=== PATIENT | female | born 1975 | race Caucasian/White ===

== ENCOUNTER → 2017-01-31 | Outpatient (CLI) | payer BC ==
--- NOTE | 2017-01-31 11:24 | XR ---
EXAMINATION TYPE: XR knee limited LT DATE OF EXAM: 01/31/2017 COMPARISON: NONE HISTORY: Knee pain TECHNIQUE: 2 view left knee FINDINGS: Joint spaces are preserved. No joint effusion is evident. No acute osseous abnormality is e vident. The soft tissues appear normal. No radiopaque foreign bodies are evident. IMPRESSION: 1. Normal 2 view left knee
--- NOTE | 2017-01-31 11:25 | XR ---
EXAMINATION TYPE: XR lumbosacral spine min 4V DATE OF EXAM: 01/31/2017 COMPARISON: NONE HISTORY: Low back pain TECHNIQUE: 4 view lumbar spine FINDINGS: There is straightening of the lumbar spine. Some facet degenerative changes present. There 5 lumbar-type vertebral bodies. Pedicles are intact. Disc heights are preserved. Vertebral body heigh ts are preserved. There is straightening of the lumbar spine and the lateral projection. IMPRESSION: 1. No acute osseous abnormality.
== END ==
LOC: RADXRYALE 10:44
PROVIDERS: ATTEND Internal Medicine
DX: M25.562 Pain in left knee (principal); M54.5 Low back pain
CPT/HCPCS: 72110

== ENCOUNTER → 2017-02-06 | Outpatient (CLI) | payer BC ==
--- NOTE | 2017-02-07 13:18 | MM ---
Reason for exam: screening (asymptomatic). Last mammogram was performed 7 years and 2 months ago. History: Patient is nulliparous. Cyst aspiration of the left breast, 2006. Taking hormonal contraceptives. Physical Findings: A clinical breast exam by your physician is recommended on an annual basis and results should be correlated with mammographic findings. MG Screening Mammo w CAD Bilateral CC and MLO view(s) were taken. Prior study comparison: December 11, 2009, mammogram, performed at [facility]. There are scattered fibroglandular densities. No significant changes when compared with prior studies. ASSESSMENT: Negative, BI-RAD 1 RECOMMENDATION: Routine screening mammogram of both breasts in 1 year.
== END | disposition home or self-care (01) ==
LOC: RADMAMWWP 13:53
PROVIDERS: ATTEND Obstetrics & Gynecology
DX: Z12.31 Encounter for screening mammogram for malignant neoplasm of breast (principal)

== ENCOUNTER → 2018-03-03 | Outpatient (CLI) | payer BC ==
--- NOTE | 2018-03-04 12:24 | MM ---
Reason for exam: screening (asymptomatic). Last mammogram was performed 1 year and 1 month ago. History: Patient is nulliparous. Cyst aspiration of the left breast, 2006. Taking hormonal contraceptives. Physical Findings: A clinical breast exam by your physician is recommended on an annual basis and results should be correlated with mammographic findings. MG Screening Mammo w CAD Bilateral CC and MLO view(s) were taken. Prior study comparison: February 06, 2017, bilateral MG screening mammo w CAD. December 11, 2009, mammogram, performed at [facility]. There are scattered fibroglandular densities. No suspicious abnormality. No significant changes when compared with prior studies. ASSESSMENT: Negative, BI-RAD 1 RECOMMENDATION: Routine screening mammogram of both breasts in 1 year.
== END | disposition home or self-care (01) ==
LOC: RADMAMWWP 15:31
PROVIDERS: ATTEND Obstetrics & Gynecology
DX: Z12.31 Encounter for screening mammogram for malignant neoplasm of breast (principal)
CPT/HCPCS: 77067

== ENCOUNTER → 2023-01-20 | Outpatient (CLI) | payer OTHER ==
--- NOTE | 2023-01-20 12:05 | CA ---
Exercise Stress Test Report Name: Ave Coats Exam Date: 01/20/2023 09:04 Exam Location: [place] Stress Ht (in): 71 Wt (lb): 273 BSA: 2.41 Ordering Phys: Lia Murray DO Referring Phys: LIA MURRAY,, Technologist: Neeraj Sanchez Age: 47 Gender: F : 1975 Procedure CPT: Indications: R07.89 ICD-10 Codes: Patient History: Medications: MOUNJARO, LISINOPRIL, METFORMIN, IBUPROFEN Meds past 24 hrs: Pretest Chest Pain: STRESS TEST George Protocol Exercise Duration (min:sec): 06:[address] Depressions (mm): Angina Score: Altamirano Score: Resting HR (bpm): 82 Peak HR (bpm): 165 Resting BP (mmHg): 131 / 85 Peak BP (mmHg): 186 / 84 MPHR: 175 Target HR: 149 % MPHR: 94 METS: 8.6 Total Dose: Peak Dose: Atropine: Double Product: 86477 BP Response: Stress Termination: Reached target heart rate Stress Symptoms: SHORT OF BREATH Stress Summary: ECG ANALYSIS Resting ECG: Stress ECG: CONCLUSIONS Patient underwent exercise stress EKG with a George protocol treadmill stress test. Patient exercised into Stage 2 for a total of 6 minutes and 57 seconds reaching a total of 8.6 METS. Patient's maximum heart rate was 165 which represented 94 % age- predicted maximum heart rate. Stress EKG findings: At baseline patient's EKG showed normal sinus rhythm, normal axis, right bundle branch block with nonspecific [address] depressions V3 through V5 and 3 and aVF. At peak exercise, EKG showed accentuation of baseline EKG abnormalities. Conclusions: 1. Nondiagnostic stress EKG second baseline EKG abnormalities. Consider repeating stress test with imaging modality if clinically indicated. 2. Fair exercise capacity. Dr. Mark Card DO (Electronically Signed) Final Date: 20 January 2023 12:04
== END | disposition home or self-care (01) ==
LOC: RADNMMAIN 08:34
PROVIDERS: ATTEND Family Medicine
DX: R07.89 Other chest pain (principal); R94.31 Abnormal electrocardiogram [ECG] [EKG]
CPT/HCPCS: 93017

== ENCOUNTER → 2023-01-31 | Outpatient (CLI) | payer OTHER ==
--- NOTE | 2023-02-01 10:26 | CA ---
Transthoracic Echo Report Name: Ave Coats Age: 48 Gender: F : 1975 Exam Date: 01/31/2023 12:55 Exam Location: [place] Echo Ht (in): 71 Wt (lb): 273 Ordering Physician: Bebeto Borja DO Attending/Referring Phys: Bebeto Borja DO Family Physician Zakia Oh RDCS Procedure CPT: Indications: R07.89 chest pain Cardiac Hx: Technical Quality: Fair Contrast 1: Total Dose (mL): Contrast 2: Total Dose (mL): MEASUREMENTS (Male / Female) Normal Values 2D ECHO LV Diastolic Diameter PLAX 4.7 cm 4.2 - 5.9 / 3.9 - 5.3 cm LV Systolic Diameter PLAX 2.9 cm IVS Diastolic Thickness 1.3 cm 0.6 - 1.0 / 0.6 - 0.9 cm LVPW Diastolic Thickness 1.1 cm 0.6 - 1.0 / 0.6 - 0.9 cm LV Relative Wall Thickness 0.5 RV Internal Dim ED PLAX 3.3 cm LA Systolic Diameter LX 3.8 cm 3.0 - 4.0 / 2.7 - 3.8 cm LV Diastolic Volume MOD 4C 137.0 cm??? LV Systolic Volume MOD 4C 68.0 cm??? LV Ejection Fraction MOD 4C 50.4 % LV Cardiac Index MOD 4C 2228.7 cm???/min???m??? LV Diastolic Length 4C 8.8 cm LV Systolic Length 4C 7.4 cm LV Diastolic Volume MOD 2C 100.4 cm??? LV Systolic Volume MOD 2C 53.0 cm??? LV Ejection Fraction MOD 2C 47.3 % LV Cardiac Index MOD 2C 1533.2 cm???/min???m??? LV Diastolic Length 2C 8.9 cm LV Systolic Length 2C 7.3 cm LA Volume 51.6 cm??? 18 - 58 / 22 - 52 cm??? M-MODE Aortic Root Diameter MM 3.0 cm MV E Point Septal Separation 0.7 cm AV Cusp Separation MM 2.5 cm DOPPLER AV Peak Velocity 146.9 cm/s AV Peak Gradient 8.6 mmHg MV Area PHT 2.6 cm??? Mitral E Point Velocity 77.8 cm/s Mitral A Point Velocity 59.0 cm/s Mitral E to A Ratio 1.3 MV Deceleration Time 287.9 ms MV E' Velocity 12.2 cm/s Mitral E to MV E' Ratio 6.4 TR Peak Velocity 223.3 cm/s TR Peak Gradient 19.9 mmHg Right Ventricular Systolic Press 24.9 mmHg FINDINGS Left Ventricle Left ventricular ejection fraction is estimated at 55-60 %. Left ventricular cavity size normal. Mildly increased septal wall thickness. Mildly increased posterior wall thickness. Right Ventricle Mild right ventricular dilatation. Right ventricular systolic pressure within normal limits. Right Atrium Normal right atrial size. Left Atrium Normal left atrial size. Mitral Valve Structurally normal mitral valve. Trace mitral regurgitation. Aortic Valve Trileaflet aortic valve. No aortic valve stenosis or regurgitation. Tricuspid Valve Structurally normal tricuspid valve. Trace to mild tricuspid regurgitation. Pulmonic Valve Structurally normal pulmonic valve. Trace pulmonic regurgitation. Pericardium Normal pericardium. No pericardial effusion. Aorta Normal size aortic root and proximal ascending aorta. CONCLUSIONS Normal LV systolic function Previewed by: Dr. Tai Freed MD (Electronically Signed) Final Date: 01 February 2023 10:25
== END | disposition home or self-care (01) ==
LOC: RADECHMAIN 12:43
PROVIDERS: ATTEND Family Medicine
DX: I08.1 Rheumatic disorders of both mitral and tricuspid valves (principal); R07.89 Other chest pain
CPT/HCPCS: 93306

== ENCOUNTER → 2023-04-02 | Outpatient (CLI) | payer OTHER ==
--- NOTE | 2023-04-02 15:03 | NM ---
EXAMINATION TYPE: NM stress cardiolite complete DATE OF EXAM: 04/02/2023 COMPARISON: NONE CLINICAL INDICATION: Female, 48 years old with history of R07.89 OTHER CHEST PAIN; TECHNIQUE: After the intravenous administration of 10.2 mCi Tc 99m Sestamibi - Rest images obtained 45 minutes post injection. The patient exercised using a MACKENZIE protocol and 1 minute prior to peak exercise was injected with 26.6 mCi Tc 99m Sestamibi - Stress images obtained 10 minutes post injecti on. FINDINGS: Targeted heart rate (148 BPM) was achieved during performance of the study (162 bpm achieved). Total exercise time 6 minutes 30 seconds. Review of stress and rest SPECT images demonstrates moderate size fixed perfusion defect along the mid anteroseptal wall. No distinct perfusion reversibility seen. Ga geeta analysis shows normal wall motion with an estimated left ventricular ejection fraction of 69 %. TID is calculated at 0.87. IMPRESSION: Moderate-sized fixed defect along the mid anteroseptal wall. Correlate for history of daryl or infarct. No scintigraphic evidence for inducible ischemia.
--- NOTE | 2023-04-03 07:24 | CA ---
Exercise Nuclear Stress Test Report Name: Ave Coats Exam Date: 04/02/2023 10:03 Exam Location: [place] Stress Ht (in): 71 Wt (lb): 261 BSA: 2.36 Ordering Phys: Lia Murray DO Referring Phys: LIA MURRAY,, Technologist: Burton Alberto Age: 48 Gender: F : 1975 Procedure CPT: Indications: R07.89 other chest pain ICD-10 Codes: Patient History: Medications: METFORMIN, LISINOPRIL, MUNJERO Meds past 24 hrs: Pretest Chest Pain: STRESS TEST George Protocol Exercise Duration (min:sec): 06:[address] Depressions (mm): Angina Score: Altamirano Score: Resting HR (bpm): 96 Peak HR (bpm): 163 Resting BP (mmHg): 145 / 88 Peak BP (mmHg): 205 / 80 MPHR: 174 Target HR: 148 % MPHR: 94 METS: 8.0 Total Dose: Peak Dose: Atropine: Double Product: 94403 BP Response: Stress Termination: TARGET HR REACHED/MAX EXERTION Stress Symptoms: DIFFICULTY IN BREATHING Stress Summary: ECG ANALYSIS Resting ECG: Stress ECG: CONCLUSIONS Good exercise tolerance Normal EKG in response to exercise Dr. Kieran Dolan MD (Electronically Signed) Final Date: 03 April 2023 07:23
--- NOTE | 2023-04-03 08:54 | MM ---
Reason for Exam: Screening (asymptomatic). Last mammogram was performed 5 year(s) and 1 month(s) ago. Patient History: Menarche at age 14. Patient has no children. Postmenopausal. Currently using Hormonal Contraceptives. 2006, Cyst Aspiration on the Left side. Risk Values: Ary 5 year model risk: 0.9%. NCI Lifetime model risk: 10.5%. Prior Study Comparison: 12/11/2009 Screening Mammogram, [facility]. 02/06/2017 Bilateral Screening Mammogram, [facility]. 03/03/2018 Bilateral Screening Mammogram, [facility]. Tissue Density: The breast tissue is almost entirely fat. Findings: Analyzed By CAD. There is no suspicious group of microcalcifications or new suspicious mass in either breast. Overall Assessment: Negative, BI-RAD 1 Management: Screening Mammogram of both breasts in [address] [facility] will attempt to contact patient to return for supplemental views and ultrasound if indicated. Patient should continue monthly self-breast exams. A clinical breast exam by your physician is recommended on an annual basis. This exam should not preclude additional follow-up of suspicious palpable abnormalities. Note on Ary scores and lifetime risk: 1. A Ary score greater than 3% is considered moderate risk. If this is the case, consider specialist referral to assess eligibility for a risk reducing agent. 2. If overall lifetime risk for the development of breast cancer is 20% or higher, the patient may qualify for future screening with alternating mammogram and breast MRI. Electronically signed and approved by: Konstantin Babb DO
== END | disposition home or self-care (01) ==
LOC: RADMAMWWP 08:20
PROVIDERS: ATTEND Family Medicine
DX: Z12.31 Encounter for screening mammogram for malignant neoplasm of breast (principal); R07.89 Other chest pain; Z78.0 Asymptomatic menopausal state
CPT/HCPCS: 93017; 77067; 78452; A9500

== ENCOUNTER → 2024-11-05 | Outpatient (CLI) | payer OTHER ==
--- NOTE | 2024-11-08 07:49 | MM ---
Reason for Exam: Screening (asymptomatic). Last mammogram was performed 1 year(s) and 8 month(s) ago. Patient History: Menarche at age 14. Patient has no children. Postmenopausal. Currently using Hormonal Contraceptives. 2007, Cyst Aspiration on the Left side. Risk Values: Ary 5 year model risk: 1.0%. NCI Lifetime model risk: 10.3%. Prior Study Comparison: 02/06/2017 Bilateral Screening Mammogram, [facility]. 03/03/2018 Bilateral Screening Mammogram, [facility]. 04/02/2023 Bilateral MG screening mammo w CAD, [facility]. Tissue Density: There are scattered areas of fibroglandular density. Findings: Analyzed By CAD. There are a couple new circumscribed round areas within the right breast, one located medially and one located laterally measuring up to 6 mm. In addition to these, there are a couple benign oil cysts that have also developed. Further evaluation with tomographic views is recommended to determine if the round densities correspond to skin lesions or intraparenchymal. Ultrasound may also be needed. Otherwise, no significant change. Overall Assessment: Incomplete: need additional imaging evaluation, BI-RAD 0 Management: Special View Mammogram of the right breast. To include 3-D CC, 3-D MLO, and 3-D lateral views. Keep nipple in profile. [facility] will attempt to contact patient to return for supplemental views and ultrasound if indicated. [facility], , 11/08/2024 7:46 AM. Electronically signed and approved by: Shahana Clements M.D. Radiologist
== END | disposition home or self-care (01) ==
LOC: RADMAMWWP 16:32
PROVIDERS: ATTEND Family Medicine
DX: Z12.31 Encounter for screening mammogram for malignant neoplasm of breast (principal); R92.323 Mammographic fibroglandular density, bilateral breasts; Z78.0 Asymptomatic menopausal state; Z79.3 Long term (current) use of hormonal contraceptives
CPT/HCPCS: 77067

== ENCOUNTER → 2024-11-09 | Outpatient (CLI) | payer OTHER ==
--- NOTE | 2024-11-09 08:31 | MM ---
Reason for Exam: Additional evaluation requested from abnormal screening. Last screening mammogram was performed less than 1 month ago. Patient History: Menarche at age 14. Patient has no children. Postmenopausal. Currently using Hormonal Contraceptives. 2006, Cyst Aspiration on the Left side. Risk Values: Ary 5 year model risk: 1.0%. NCI Lifetime model risk: 10.3%. Tissue Density: Right: There are scattered areas of fibroglandular density. Findings: Analyzed By CAD. Approximately 5 new circumscribed isodense to low-density nodules along the superior aspect of the right breast. Most of these show fine rim calcification suggesting benign oil cyst. One of these, just lateral to the retroareolar plane on the cc view measuring 5 mm noncalcified and likely corresponds to a noncalcified oil cyst. Six-month follow-up recommended. Overall Assessment: Probably benign, BI-RAD 3 Management: Diagnostic Mammogram of the right breast in 6 months. Results were given to the patient verbally at the time of exam. Patient should continue monthly self-breast exams. A clinical breast exam by your physician is recommended on an annual basis. This exam should not preclude additional follow-up of suspicious palpable abnormalities. Note on Ary scores and lifetime risk: 1. A Ary score greater than 3% is considered moderate risk. If this is the case, consider specialist referral to assess eligibility for a risk reducing agent. 2. If overall lifetime risk for the development of breast cancer is 20% or higher, the patient may qualify for future screening with alternating mammogram and breast MRI. [facility], , 11/09/2024 8:28 AM. Electronically signed and approved by: Shahana Clements M.D. Radiologist
== END | disposition home or self-care (01) ==
LOC: RADMAMWWP 08:00
PROVIDERS: ATTEND Family Medicine
DX: R92.8 Other abnormal and inconclusive findings on diagnostic imaging of breast (principal); R92.321 Mammographic fibroglandular density, right breast; Z78.0 Asymptomatic menopausal state; Z79.3 Long term (current) use of hormonal contraceptives
CPT/HCPCS: 77061; 77065